=== PATIENT | female | born 1970 | race Caucasian/White ===

== ENCOUNTER → 2024-05-26 18:26 | Outpatient (REF) | payer BC, SELFPAY | LOC: MRI 3T 18:26 | PROVIDERS: ATTENDING PHYSICIAN Surgery; FAMILY PHYSICIAN Internal Medicine | DX: Z91.89 Other specified personal risk factors, not elsewhere classified (principal); R92.30 Dense breasts, unspecified | CPT/HCPCS: 77049; A9585 ==

== ENCOUNTER → 2024-08-15 06:22 | Day surgery (SDC) | payer OTHER, SELFPAY | LOC: GI 06:22 | PROVIDERS: ATTENDING PHYSICIAN Internal Medicine Gastroenterology | DX: K22.70 Barrett's esophagus without dysplasia (principal); K44.9 Diaphragmatic hernia without obstruction or gangrene | CPT/HCPCS: 43239; 88305 ==

== ENCOUNTER → 2025-08-22 17:45 | Outpatient (REF) | payer OTHER, SELFPAY | LOC: MRI 3T 17:45 | PROVIDERS: ATTENDING PHYSICIAN Nurse Practitioner Adult Health; FAMILY PHYSICIAN Internal Medicine | DX: R92.30 Dense breasts, unspecified (principal); Z91.89 Other specified personal risk factors, not elsewhere classified; Z80.3 Family history of malignant neoplasm of breast | CPT/HCPCS: 77049; A9585 ==